=== PATIENT | female | born 1970 | race Caucasian/White ===

== ENCOUNTER → 2017-03-27 | Outpatient (CLI) | payer OTHER ==
--- NOTE | 2017-03-27 16:39 | RADIOLOGY REPORT PS360 ---
US THYROID HISTORY: Thyroid nodules THYROID NEOPLASM ORDERING PHYSICIAN: Homer Cline MD PATIENT AGE: 46 years COMPARISON: None FINDINGS: The right lobe is 4.3 x 1.4 x 1.6 cm. There is a heterogeneous hypoechoic nodule noted along the superior pole on the right at 2 x 1 cm. A 7 mm hypoechoic nodules present in the lower pole on the right. The left lobe is 41.4 x 1.3 cm. There is a complex 1 7-m nodule in the upper pole on the left with central cystic changes. A 7 mm hypoechoic nodules present in the lower pole on the left. The isthmus has an unremarkable appearance. IMPRESSION: Bilateral thyroid nodules the largest on the right at 2.1 cm.
--- NOTE | 2017-04-02 10:21 | RADIOLOGY REPORT PS360 ---
US BIOPSY OR PARACENTESIS HISTORY: THYROID NEOPLASM ORDERING PHYSICIAN: Homer Cline MD PATIENT AGE: 46 years COMPARISON: None TECHNIQUE: Following obtaining informed consent, using aseptic technique and local anesthesia with buffered lidocaine, fine-needle aspiration was performed of the nodule of interest in the upper pole on the right using sonographic guidance. 2 passes were made into the nodule with a 25-gauge needle. Specimen was given to cytology. The patient tolerated the procedure well without evidence of immediate complications and left the ultrasound suite in stable condition. CYTOLOGY:Atypical IMPRESSION: Fine needle aspiration of the thyroid nodule remarkable for atypical cytologic findings.
== END ==
LOC: RAD 12:09
PROC: 0G9H3ZX Drainage of Right Thyroid Gland Lobe, Percutaneous Approach, Diagnostic (ICD-10-PCS; principal; 2017-03-27)
DX: D34 Benign neoplasm of thyroid gland (principal)